=== PATIENT | female | born 1965 | race Two or more races ===

== ENCOUNTER → 2024-03-29 | Outpatient (CLI) | payer BC, SELFPAY ==
--- NOTE | 2024-03-29 10:00 | XR_ITS ---
Examination: Breast ultrasound complete, bilateral Date and time of exam: March 29, 2024 1012 hrs. Comparison September 23, 2022 Indications: Family history breast cancer mother sister, personal history left breast lumpectomy, mammogram May 26, 2023 18 mm focal asymmetry upper outer left breast 12 mm focal asymmetry upper outer right breast Technique: Real-time grayscale ultrasonographic imaging bilateral breasts, including all 4 quadrants as well as nipple retroareolar and axillary regions. Findings: Sonographic images right breast No cystic or solid mass Sonographic images left breast 12:00 nodule 8 x 3 x 10 mm 10:00 hyperechoic nodule likely lipoma 11 x 11 mm Impression: BI-RADS Category 3: Probably benign findings One additional 6 month left breast sonogram follow-up is needed to document stability of 12:00 nodule described above
--- NOTE | 2024-03-29 11:15 | XR_ITS ---
Examination: Diagnostic digital mammography, bilateral Computer aided detection 3-D breast Tomosynthesis, bilateral Date and time of exam: March 29, 2024 1046 hrs. Compared to mammograms dating to January 18, 2018 Mammogram May 26, 2023 8 mm focal asymmetry upper outer left breast, 12 mm focal asymmetry upper outer right breast Technique: Nonmagnified MLO, CC views of the breasts to been obtained, reconstructed from 3-D Tomosynthesis images. R2 computer aided detection program utilized for evaluation of suspicious masses and/or abnormal calcifications. 3-D Tomosynthesis images obtained. Findings: The breasts are heterogeneously dense, which may obscure small masses No right breast suspicious mass 8 mm focal asymmetry upper outer right breast is noted Impression: BI-RADS Category 3: Probably benign findings Recommend 1 additional 6 month left mammogram follow-up to document stability of focal asymmetry described above.
== END | disposition home or self-care (01) ==
LOC: CDIM 09:58
PROVIDERS: Referring Provider Obstetrics & Gynecology; Visit Provider Obstetrics & Gynecology
DX: R92.333 Mammographic heterogeneous density, bilateral breasts (principal); N64.89 Other specified disorders of breast; N63.25 Unspecified lump in the left breast, overlapping quadrants
CPT/HCPCS: 76641; 77062; 77066; G0279

== ENCOUNTER → 2024-09-27 | Outpatient (CLI) | payer BC, SELFPAY ==
--- NOTE | 2024-09-27 09:00 | XR_ITS ---
Examination: Breast ultrasound, unilateral, left complete Date and time of exam: September 27, 2024 0905 hours INDICATIONS: Bilateral breast sonography March 29, 2024 left breast 12:00 nodule 10 mm 10:00 nodule 11 mm left breast pain several years, family history, sister, breast cancer Technique: Real-time gore scale ultrasonographic imaging performed left breast including all 4 quadrants as well as nipple retroareolar and axillary region. Findings: 12:00 nodule circumscribed 8 x 7 mm 10:00 hyperechoic circumscribed mass 12 x 10 mm IMPRESSION: BI-RADS Category 3: Probably benign findings Recommend 1 additional 6 month left breast sonogram follow-up to document stability of nodules described above
--- NOTE | 2024-09-27 09:30 | XR_ITS ---
Examination: Diagnostic digital mammography, unilateral, left Computer aided detection 3-D breast Tomosynthesis, unilateral Date and time of exam: September 27, 2024 0915 hours INDICATIONS: Mammogram May 26, 2023 8 mm focal asymmetry upper outer left breast Technique: Nonmagnified MLO, CC views of the left breast have been obtained, reconstructed from 3-D Tomosynthesis images. R2 computer aided detection program utilized for evaluation of suspicious masses and/or abnormal calcifications. 3-D Tomosynthesis images obtained. Findings: The breast is heterogeneously dense, which may obscure small masses Stable focal asymmetry upper outer left breast Impression: BI-RADS category 2: Benign findings Recommend 6 month bilateral mammography follow-up
== END | disposition home or self-care (01) ==
PROVIDERS: PCP Family Medicine; Referring Provider Family Medicine; Visit Provider Family Medicine
DX: R92.8 Other abnormal and inconclusive findings on diagnostic imaging of breast (principal); N63.25 Unspecified lump in the left breast, overlapping quadrants; N63.22 Unspecified lump in the left breast, upper inner quadrant; R92.332 Mammographic heterogeneous density, left breast
CPT/HCPCS: 76641; 77061; 77065; G0279